=== PATIENT | male | born 1995 | race African-American/Black ===

== ENCOUNTER 2023-08-31 23:59 | Emergency (ER) | payer SELFPAY ==
[~2023-08-31] VITALS: Ht 185.4 cm; Wt 81.0 kg
[2023-09-01 00:08] VITALS: O2SAT 99
[2023-09-01] MEDS: MORPHINE SULFATE 4 MG/ML INJ (FOR IV/IM USE) IV STA (00:50)
[2023-09-01] MEDS: SODIUM CHLORIDE 0.9% 1,000 ML IV ONE (01:43)
[2023-09-01] MEDS: ONDANSETRON HCL 4MG/2ML INJ IV STA (01:44)
[2023-09-01 01:59] LABS: EOSINOPHILS % 0.7 % (0.0-5.0); HEMATOCRIT. 43.7 % (42.0-52.0); HEMOGLOBIN. 14.9 g/dL (14.0-18.0); LYMPHOCYTES % 36.8 % (20.0-50.0); MEAN CORPUSCULAR HEMOGLOBIN 29.2 pg (28.0-32.0); MEAN CORPUSCULAR HGB CONC 34.1 g/dL (31.0-37.0); MEAN CORPUSCULAR VOLUME 85.6 fL (80.0-94.0); MEAN PLATELET VOLUME 7.5 fl (7.4-10.4); MONOCYTES % 8.7 % (2.0-8.0); NEUTROPHILS % 52.8 % (40.0-76.0); PLATELET 309 x1000/uL (130-400); RED CELL DISTRIBUTION WIDTH 12.7 % (11.6-14.6); WHITE BLOOD COUNT 8.6 x1000/uL (4.5-11.0)
[2023-09-01 02:11] LABS: CHLORIDE 103 mEq/L (98-107); POTASSIUM 3.5 mEq/L (3.5-5.1); SODIUM 137 mEq/L (136-145)
[2023-09-01 02:12] LABS: CARBON DIOXIDE 26 mEq/L (21-32)
[2023-09-01 02:17] LABS: CREATININE 0.9 mg/dL (0.6-1.3); GLUCOSE 99 mg/dL (70-105); UREA NITROGEN BLOOD 10 mg/dL (9-23)
[2023-09-01] MEDS ORDERED: HYDR-4001 MT (04:50)
[2023-09-01] MEDS ORDERED: METH-653 MT (04:50)
[2023-09-01 04:55] VITALS: BP 120/75; PULSE 82; RESP 15; TEMP 98.2
[2023-09-01] MEDS ORDERED: IOHEXOL-300 100 ML BOTTLE ONE (06:06)
== END 2023-09-01 05:20 | disposition home or self-care (01) ==
LOC: ER 23:59
DX: T14.90XA Injury, unspecified, initial encounter (principal); M54.2 Cervicalgia; M54.50 Low back pain, unspecified; V49.9XXA Car occupant (driver) (passenger) injured in unspecified traffic accident, initial encounter; Y93.89 Activity, other specified; Y92.89 Other specified places as the place of occurrence of the external cause; Y99.8 Other external cause status
CPT/HCPCS: 99291; 70450; 96374; 71045; 96361; 96375; 80048; 85025; 36415; 72170; 71260; 72125; 74177; Q9967; J2405; J2270; J7030